=== PATIENT | male | born 1965 | race Caucasian/White ===

== ENCOUNTER 2023-07-12 06:12 | Day surgery (SDC) | payer OTHER, SELFPAY ==
[2023-07-07 12:28] VITALS: BMI 23.4
[2023-07-12] VITALS (8 sets, daily range): BP systolic 111–131; BP diastolic 70–86; BMI 23.4
[2023-07-12] MEDS: TYLENOL 1000 MG PO (06:26)
[2023-07-12] MEDS: NORMOSOL-R 1000 IV (06:27)
--- NOTE | 2023-07-12 09:25 | W.SUR.PREOP ---
Pre-Operative Surgical Note
-
I have examined this patient prior to the performance of the scheduled procedure.
The patient's condition is unchanged from the time of the current History and
Physical and the patient is able to undergo the scheduled procedure.
--- NOTE | 2023-07-12 09:25 | W.IMMPOSTOP ---
Surgical Immed Post Op Note
-
Primary Surgeon: Nikolay Ortiz MD
Assisting Surgeon: None
Pre-op Diagnosis: Bilateral inguinal hernia
Post-op Diagnosis: Same
Procedure Performed: Laparoscopic bilateral inguinal hernia repair with mesh (TEP approach)
Anesthesia Type: General
Specimen / Cultures: None
Estimated Blood Loss: 3 cc
Complications: None
Operative Findings: Patient had bilateral direct inguinal hernias. No indirect or femoral components. No cord lipomas noted on either side. A rent was made on the right peritoneal flap which was closed with 5 mm titanium clips. An
intra-abdominal view confirmed no other defects and good apposition of the mesh to the abdominal wall with only a very small fold in the right lateral mesh corner
--- NOTE | 2023-07-12 09:29 | OR.RPT ---
Operative Report
Operative Report
Patient Name: Garcia Ocasio
: 1965
Date of Operation: 07/12/2023
Preoperative Diagnosis: Reducible Inguinal hernia, bilateral
Postoperative Diagnosis: Same
Procedure(s):
Laparoscopic bilateral inguinal Hernia Repair with mesh, (TEP approach)
Surgeon(s):
Dr. Ortiz
Fruit Or Nut Farmworker(s):
None
Anesthesia: General
Estimated Blood Loss: 3 cc
Urine Output: None
Drains/Lines/Implants: Large 3D Max Bard Soft Mesh X 2
Specimens: None
Indication for surgery: The patient has a history of groin pain and noted on exam to have bilateral inguinal Hernia(s). Following review of therapeutic options they has elected to undergo a minimally invasive repair.
Findings at the time of surgery:
Patient had bilateral direct inguinal hernias.� No indirect or femoral components.� No cord lipomas noted on either side.� A rent was made on the right peritoneal flap which was closed with 5 mm titanium clips.�The inguinal floors were reinforced
with a large BARD 3D max mesh and tacks at coopers bilaterally. An intra-abdominal view confirmed no other defects and good apposition of the mesh to the abdominal wall with only a very small fold in the right lateral mesh corner.
Details of the operation:
After inducing general anesthesia and endotracheal intubation, the patient was prepped and draped in the supine position with both arms tucked. After infiltration with 0.25% Marcaine, ainfraumbilicaln incision was made. Dissection was carried down
to the anterior sheath which was incised and the rectus muscle retracted laterally. An origin balloon was then inserted in through the posterior portion of the rectus into the preperitoneal space. This was insufflated under direct vision and blunt
dissection was therefore achieved in the preperitoneal space. The balloon was then removed and a 12mm Balloon trocar was placed. Two 5-mm ports were also placed in the midline below the camera port. Blunt dissection was used to dissect the
myopectineal orifice with care not to injure the epigastric vessels, gonadals or spermatic cord. Blunt dissection was used to identify the direct, indirect, and femoral spaces.
Left side:
The cord was inspected and no indirect hernia was noted.
There was no cord lipoma.
There was a moderate weakness in the direct space floor.
There was no femoral herniation.
A large 3D max mesh was then placed into position and positioned into the appropriate area to cover all 3 defects and secured to Aristides's ligament with 2 absorbable tacks.
Right side:
The cord was inspected and no indirect hernia was noted.
There was no cord lipoma.
There was a small weakness in the direct space floor.
There was no femoral herniation.
A large 3D max mesh was then placed into position and positioned into the appropriate area to cover all 3 defects and secured to Aristides's ligament with 2 absorbable tacks.
A rent made in the right peritoneal flap was closed with 5 mm clips.
The area was then completely infiltrated with 30 cc of Marcaine without epinephrine (0.25%). The insufflation was slowly decreased and the mesh was assured to be in proper position with desufflation. The Martin port was removed and a small shari
was made in the posterior sheath with evacuation of pneumoperitoneum. One of the 5 mm trocars was then reinserted into the space and the abdomen was insufflated. We then inspected the groins via a transabdominal approach. No rents or exposed mesh
were identified. The right peritoneal flap was completely intact. The meshes bilaterally were nicely opposed and only a small corner of the lateral portion of the right mesh was folded over. The port was removed and the abdomen was desufflated.
The Carlotta trocar site was also closed with 0 PDS suture in a [id number] fashion, in layers. The skin sites were all then closed with running subcuticular 4-0 Monocryl suture followed by dermabond. Inspection of the scrotum revealed both
testes to be in position. The patient returned to the recovery room in stable condition. Sponge and instrument counts were correct. No specimen sent to pathology
I was the attending physician and performed the procedure with no assistance. I was present for all portions of the case
Nikolay Ortiz MD
[2023-07-12] MEDS: MOTRIN 600 MG PO (11:29)
== END 2023-07-12 11:30 | disposition home or self-care (01) ==
LOC: SDS 06:12
PROVIDERS: ATTENDING PHYSICIAN Surgery; FAMILY PHYSICIAN Family Medicine
DX: K40.20 Bilateral inguinal hernia, without obstruction or gangrene, not specified as recurrent (principal)
CPT/HCPCS: 49650; 36415; 93005; C1781